=== PATIENT | female | born 1930 | race Caucasian/White ===

== ENCOUNTER 2016-08-31 19:22 | Inpatient (IN) | payer MEDICARE ==
[~2016-08-31] VITALS: Ht 172.7 cm; Wt 58.3 kg
[2016-08-31] MEDS ORDERED: ACETAMINOPHEN 325 MG TAB ONE (19:49)
[2016-08-31] MEDS ORDERED: SODIUM CHLORIDE 0.9% 1,000 ML ONE ×3 (20:21→22:49)
[2016-08-31] MEDS ORDERED: CEFTRIAXONE 1 GM VIAL ONE ×2 (22:00→22:14)
[2016-08-31] MEDS ORDERED: LACT RINGERS 500 ML IV ONE (22:59)
[2016-09-01] VITALS (7 sets, daily range): BP systolic 98–159; RESP 16–20; TEMP 97.5–98.2; Ht 172.7 cm; Wt 58.3 kg
[2016-09-01] MEDS ORDERED: FLUCONAZOLE 150 MG TAB PO ONE (00:20)
[2016-09-01] MEDS ORDERED: ACETAMINOPHEN 325 MG TAB PO PRN (01:10)
[2016-09-01] MEDS ORDERED: SALINE FLUSH 10 ML FLUSH PRN (01:10)
[2016-09-01] MEDS ORDERED: ALU/MAG/SIM 30 ML UDC PO PRN (01:10)
[2016-09-01] MEDS ORDERED: ONDANSETRON 4 MG VIAL IV PRN (01:10)
[2016-09-01] MEDS: SODIUM CHLORIDE 0.9% 1,000 ML IV SCH ×3 (02:36→22:59)
[2016-09-01] MEDS: SODIUM CHLORIDE 0.9% FLUSH BAG 500 ML IV SCH (03:36)
[2016-09-01] MEDS: LEVOTHYROXINE 0.112 MG TAB PO SCH (06:03)
[2016-09-01] MEDS: SALINE FLUSH 10 ML FLUSH SCH ×2 (09:01→20:32)
[2016-09-01] MEDS: CYANOCOBA 500 MCG TAB PO SCH (09:02)
[2016-09-01] MEDS: CEFTRIAXONE 1 GM in SODIUM CHLORIDE 0.9% 50 ML IV SCH (09:02)
[2016-09-01] MEDS: MULTIVITS/MINERALS (THERAGRAN M) TAB PO SCH (09:02)
[2016-09-02] VITALS (7 sets, daily range): BP systolic 150–202; RESP 16–18; TEMP 97.9–98.5
[2016-09-02] MEDS: SODIUM CHLORIDE 0.9% FLUSH BAG 500 ML IV SCH (01:52)
[2016-09-02] MEDS: LEVOTHYROXINE 0.112 MG TAB PO SCH (06:33)
[2016-09-02] MEDS ORDERED: ATENOLOL 25 MG TAB PO SCH (09:00)
[2016-09-02] MEDS: CEFTRIAXONE 1 GM in SODIUM CHLORIDE 0.9% 50 ML IV SCH (10:54)
[2016-09-02] MEDS: SALINE FLUSH 10 ML FLUSH SCH (10:55)
[2016-09-02] MEDS: CYANOCOBA 500 MCG TAB PO SCH (11:00)
[2016-09-02] MEDS: MULTIVITS/MINERALS (THERAGRAN M) TAB PO SCH (11:00)
[2016-09-02] MEDS ORDERED: DUONEB INH PRN (11:50)
== END 2016-09-02 17:01 | disposition home or self-care (01) | DRG 871 ==
LOC: CANRESERV → ENRESERVTM → ENRESERVDT → ER 19:22 → EMR 23:55 → ENPENDDIS 23:55 → PCU2 09-01 02:22
PROVIDERS: ADMIT Internal Medicine; ATTEND Internal Medicine
DX: A41.9 Sepsis, unspecified organism (principal); J18.9 Pneumonia, unspecified organism; N39.0 Urinary tract infection, site not specified; I48.2 Chronic atrial fibrillation; B37.3 Candidiasis of vulva and vagina; I10 Essential (primary) hypertension; Z79.01 Long term (current) use of anticoagulants; B96.89 Other specified bacterial agents as the cause of diseases classified elsewhere
CPT/HCPCS: 36415; 71010; 80048; 80053; 81001; 82947; 83605; 84145; 84439; 84443; 85025; 85610; 85730; 86738; 87040; 87077; 87088; 87186; 87278; 87299; 87800; 87804; 93005; 94799; 96361; 96365; 99222; 99233